=== PATIENT | male | born 1960 | race Caucasian/White ===

== ENCOUNTER 2018-01-11 07:53 | Outpatient (CLI) | payer MEDICAID ==
--- NOTE | 2018-01-11 16:55 | CARDIAC PROCEDURE NOTE ---
DATE OF SERVICE: 01/11/2018 Physician: Lauren Butler MD, [facility] INDICATIONS: Dyspnea on exertion. CARDIAC RISK FACTORS: Obesity, male gender, hypertension. SUMMARY: After signing informed consent, the patient underwent a Clint protocol cardiac stress test. There was no imaging ordered with the study. Resting heart rate 77, peak heart rate 137 (85% predicted maximum heart rate for age). Resting blood pressure 144/80, peak blood pressure 180/80. The patient exercised for 7 minutes and 4 seconds on a Clint-protocol treadmill stress test. The patient achieved a peak heart rate of 146 (90% PMHR) and 8.6 METS. The patient had moderate shortness of breath at peak. He reported no chest pain. Oxygen saturation at peak exercise was 95% on room air. The heart rate was very slow to recover after exercise: it took 9 minutes for heart rate to drop under 100 beats per minute. RESTING EKG: Normal sinus rhythm, RSR' in V1 and early RS transition, consider cor pulmonale. EKG AT PEAK: No new ST or T-wave changes. EKG DURING RECOVERY: Several short runs of PSVT at rates of 150 were seen, these were asymptomatic. CONCLUSIONS: 1. Poor exercise tolerance as evidenced by very poor heart rate recovery after exertion. 2. Abnormal resting EKG suggesting cor pulmonale. 3. No ischemic EKG changes at an adequate level of stress. 3. Runs of PSVT after exertion. RECOMMENDATION: Consider repeat exercise stress testing with Echo and Doppler imaging including measuring PA pressure at peak with Doppler, for more thorough evaluation of dyspnea. cc: MD Wendi Ma DO TD: 01/11/2018 16:46 [facility]
== END 2018-01-11 07:54 | disposition home or self-care (01) ==
LOC: DI 07:53
PROVIDERS: ATTEND Internal Medicine
DX: R06.09 Other forms of dyspnea (principal); R94.31 Abnormal electrocardiogram [ECG] [EKG]; I47.1 Supraventricular tachycardia